=== PATIENT | male | born 1940 | race Caucasian/White ===

== ENCOUNTER 2025-02-13 08:10 | Day surgery (SDC) | payer OTHER ==
[2025-02-12 12:53] VITALS: BMI 23.6
[2025-02-13] MEDS ORDERED: AFRIN NASAL MIST 15 ML BOT ONE (08:24)
[2025-02-13 08:38] LABS: #Basophils 0.04 10x3/uL (0.0-0.2); #Eosinophils 0.26 10x3/uL (0.0-0.5); #Monocytes 0.67 10x3/uL (0.0-1.1); #Neutrophils 2.77 10x3/uL (1.5-8.4); %Basophils 0.7 % (0.0-2.0); %Eosinophils 4.4 % (0.0-6.0); %Lymphocytes 35.9 % (18.0-47.0); %Monocytes 11.4 % (0.0-10.0); %Neutrophils 47.3 % (40.0-75.0); Hematocrit 38.6 % (38.8-50.0); Hemoglobin 12.2 g/dL (13.5-17.5); Mean Corpuscular Hemoglobin 29.3 pg (27.0-33.0); Mean Corpuscular Volume 92.8 fL (81.2-95.1); Platelet Count 125 10x3/uL (150-450); Red Blood Cell (RBC) Count 4.16 10x6/uL (4.32-5.72); White Blood Cell (WBC) Count 5.87 10x3/uL (3.5-10.5)
[2025-02-13 08:52] LABS: Anion Gap 11 mmol/L (10-20); BUN (Urea Nitrogen) 15 mg/dL (8.4-25.7); Calc. Creatinine Clearance 59 mL/min (70-130); Calcium 9.9 mg/dL (7.8-10.44); Carbon Dioxide 29 mmol/L (23-31); Chloride 106 mmol/L (98-107); Glucose 106 mg/dL (83-110); Potassium 4.1 mmol/L (3.5-5.1); Sodium 142 mmol/L (136-145)
[2025-02-13] MEDS ORDERED: PROPOFOL 40 ML ONE (10:28)
[2025-02-13] MEDS ORDERED: Sevoflurane 250 ML INH ANEST BOTTLE ONE (11:42)
[2025-02-13] MEDS ORDERED: hydrALAZINE 20 MG/ML VIAL ONE (12:58)
== END 2025-02-13 14:00 | disposition home or self-care (01) ==
LOC: CSHSDC 08:10
PROVIDERS: ATTEND Otolaryngology Plastic Surgery within the Head & Neck
PROC: 3E0F8GC Introduction of Other Therapeutic Substance into Respiratory Tract, Via Natural or Artificial Opening Endoscopic (ICD-10-PCS; principal; 2025-02-13)
DX: J38.01 Paralysis of vocal cords and larynx, unilateral (principal); E03.9 Hypothyroidism, unspecified; F17.220 Nicotine dependence, chewing tobacco, uncomplicated; Z86.73 Personal history of transient ischemic attack (TIA), and cerebral infarction without residual deficits; Z79.890 Hormone replacement therapy
CPT/HCPCS: 31571; 80048; 85025; C1763; J2704; 36415; J0360; J3301